=== PATIENT | male | born 1970 | race Caucasian/White ===

== ENCOUNTER 2017-01-22 13:18 | Day surgery (SDC) | payer BC ==
--- NOTE | ~2017-01-22 | EGD ---
EGD REPORT [facility] [address] [place] [place] [address] NAME: ROMINA HENDRIX : 74 STATUS : REG [facility] [place] PAT#: [id number] AGE: 46 ADM/REG DATE : 01/22/17 MR#: [id number] REPORT SERV DATE: 01/22/17 DICTATED BY: MINAL ANTUNEZ DATE: 01/22/17 REPORT STATUS : Draft [facility] DATE: 01/22/17 [facility] Patient Name: Romina Hendrix Date of : 1970 Attending MD: MINAL ANTUNEZ MD Procedure Date No Time: 01/22/2017 Procedure: Upper GI endoscopy Indications: Dysphagia, Esophageal reflux, Chest pain (non cardiac), Nausea, Weight loss Referring MD: YVONNE MILNER JR. Medicines: Monitored Anesthesia Care Complications: No immediate complications. Procedure: Pre-Anesthesia Assessment: - ASA Grade Assessment: I - A normal, healthy patient. After obtaining informed consent, the endoscope was passed under direct vision. Throughout the procedure, the patient's blood pressure, pulse, and oxygen saturations were monitored continuously. The [facility] [id number] was introduced through the mouth, and advanced to the second part of duodenum. The upper GI endoscopy was accomplished without difficulty. The patient tolerated the procedure well. Findings: The examined esophagus was normal. The lower third of the esophagus was normal. Biopsies were taken with a cold forceps for histology. The examined esophagus was normal. The ROSARIO capsule with delivery system was introduced through the mouth and advanced into the esophagus, such that the ROSARIO pH capsule was positioned 34 cm from the incisors, which was 6 cm proximal to the EG junction. The ROSARIO pH capsule was then deployed and attached to the esophageal mucosa. The delivery system was then withdrawn. Endoscopy was utilized for probe placement and diagnostic evaluation. A single 7 mm sessile polyp with no stigmata of recent bleeding was found in the gastric body. The polyp was removed with a cold biopsy forceps. Resection and retrieval were complete. Localized mildly erythematous mucosa without bleeding was found in the gastric antrum. Biopsies were taken with a cold forceps for histology. A single localized erosion without bleeding was found in the duodenal bulb. Biopsies were taken with a cold forceps for histology. The 2nd part of the duodenum was normal. Biopsies were taken with a cold forceps for evaluation of celiac disease. The cardia and gastric fundus were normal on retroflexion. EGD REPORT [address] [place]. [address] NAME: ROMINA HENDRIX : [birth year] STATUS : REG [facility] PAT#: [id number] AGE: 46 ADM/REG DATE : 01/22/17 MR#: [id number] REPORT SERV DATE: 01/22/17 DICTATED BY: MINAL ANTUNEZ DATE: 01/22/17 REPORT STATUS : Draft TRANSCRIBED BY: [employer] DATE: 01/22/17 Impression: - Normal esophagus. - Normal lower third of esophagus. Biopsied. - Normal esophagus. - A single gastric polyp. Resected and retrieved. - Erythematous mucosa in the antrum. Biopsied. - Duodenal erosion without bleeding. Biopsied. - Normal 2nd part of the duodenum. Biopsied. - The ROSARIO pH capsule was deployed. Recommendation: - Patient has a contact number available for emergencies. The signs and symptoms of potential delayed complications were discussed with the patient. Return to normal activities tomorrow. Written discharge instructions were provided to the patient. - Regular diet. - Continue present medications. - Await pathology results. - Return rosario recorder as instructed. Procedure Code(s): --- Professional --- 07015, Esophagogastroduodenoscopy, flexible, transoral; with biopsy, single or multiple Diagnosis Code(s): --- Professional --- K31.7, Polyp of stomach and duodenum K31.9, Disease of stomach and duodenum, unspecified K26.9, Duodenal ulcer, unspecified as acute or chronic, without hemorrhage or perforation R13.10, Dysphagia, unspecified K21.9, Gastro-esophageal reflux disease without esophagitis R07.89, Other chest pain R11.0, Nausea R63.4, Abnormal weight loss CPT copyright 2013 [employer] [place] [employer]. All rights reserved. The codes documented in this report are preliminary and upon electronics assembler review may be revised to meet current compliance requirements. MINAL ANTUNEZ MD 01/22/2017 2:46 PM This report has been signed electronically. Number of Addenda: 0 EGD REPORT [facility] [address] [place]. [address] NAME: ROMINA HENDRIX : 74 STATUS : REG [facility] [place] PAT#: [id number] AGE: 46 ADM/REG DATE : 01/22/17 MR#: [id number] REPORT SERV DATE: 01/22/17 DICTATED BY: MINAL ANTUNEZ DATE: 01/22/17 REPORT STATUS : Draft TRANSCRIBED BY: [employer] DATE: 01/22/17 Note Initiated On: 01/22/2017 2:00 PM Scope Withdrawal Time 0 hours 0 minutes 0 seconds [address] [place] [address]
[~2017-01-22 13:18] MED LIST: ADVIL PO; NEXIUM40 PO; ZANTAC150 MG PO
== END 2017-01-22 23:59 | disposition home or self-care (01) ==
LOC: DMU 13:18
PROVIDERS: Internal Medicine Gastroenterology
PROC: 0DB78ZX Excision of Stomach, Pylorus, Via Natural or Artificial Opening Endoscopic, Diagnostic (ICD-10-PCS; 2017-01-22)
PROC: 0DB68ZX Excision of Stomach, Via Natural or Artificial Opening Endoscopic, Diagnostic (ICD-10-PCS; 2017-01-22)
PROC: 0DB98ZX Excision of Duodenum, Via Natural or Artificial Opening Endoscopic, Diagnostic (ICD-10-PCS; principal; 2017-01-22 15:00)
PROC: 0DB58ZX Excision of Esophagus, Via Natural or Artificial Opening Endoscopic, Diagnostic (ICD-10-PCS; 2017-01-22 15:00)
DX: K31.7 Polyp of stomach and duodenum (principal); K31.9 Disease of stomach and duodenum, unspecified; K26.9 Duodenal ulcer, unspecified as acute or chronic, without hemorrhage or perforation; K21.9 Gastro-esophageal reflux disease without esophagitis; Z90.49 Acquired absence of other specified parts of digestive tract; Z98.890 Other specified postprocedural states
CPT/HCPCS: 88305; 91035